=== PATIENT | female | born 1960 | race Caucasian/White ===

== ENCOUNTER → 2017-01-04 | Outpatient (CLI) | payer BC ==
[~2017-01-04] MED LIST: GLYC1TAB19 PO; ONDA4TAB4 PO; PANCCAP2 PO; PANT40TA PO
--- NOTE | 2017-01-04 14:06 | DIAGNOSTIC IMAGING REPORT ---
MRI CERVICAL WITHOUT CONTRAST CLINICAL HISTORY: M54.12 CERVICAL RADCULOPATHY NECK PAIN WITH RIGHT ARM RADICULOPATHY. TECHNIQUE: Sagittal and axial T1, T2 and STIR images were obtained. COMPARISON STUDY: No previous studies for comparison. There are no suspicious areas of marrow replacement. No intrinsic cervical cord lesions are visualized. C2-3: There is no evidence of disc bulge or focal herniation. There is no spinal or foraminal stenosis. C3-4: There is no evidence of disc bulge or focal herniation. There is no spinal or foraminal stenosis. C4-5: There are no disc bulges or focal herniations. There is no spinal or foraminal stenosis. C5-6 :There is a left paracentral disc protrusion with effacement of the anterior subarachnoid space. C6-7: There is a right paracentral disc protrusion with effacement of the anterior subarachnoid space. There is right-sided foraminal narrowing. C7-T1: There is no evidence of disc bulge or focal herniation. There is no evidence of spinal or foraminal stenosis. There are multiple tiny perineural cysts. IMPRESSION: 1. Small left paracentral disc protrusion at the C5-6 level with secondary effacement of the anterior subarachnoid space 2. Small right paracentral disc protrusion at the C6-7 level with secondary effacement of the anterior subarachnoid space. In addition there is right-sided foraminal narrowing. Electronically signed by: Alcides Siddiqi M.D. 01/04/2017 2:05 PM Dictated Date/Time: 01/04/2017 2:00 PM
== END | disposition home or self-care (01) ==
LOC: C.MRI 08:02
PROVIDERS: ATTEND Orthopaedic Surgery Orthopaedic Surgery of the Spine
DX: M54.12 Radiculopathy, cervical region (principal)

== ENCOUNTER → 2017-03-15 | Outpatient (CLI) | payer BC ==
--- NOTE | 2017-03-15 16:02 | MAMMOGRAPHY REPORT ---
UNILATERAL LEFT DIGITAL SCREENING MAMMOGRAM TOMOSYNTHESIS WITH CAD: 03/15/2017 CLINICAL HISTORY: Asymptomatic. Personal history of breast cancer. TECHNIQUE: Breast tomosynthesis in addition to standard 2D mammography was performed. Current study was also evaluated with a Computer Aided Detection (CAD) system. Left CC and MLO 2-D and tomosynthes is images were obtained. COMPARISON: Comparison is made to exams dated: 02/18/2015 mammogram, 02/17/2014 mammogram, 02/11/2013 m ammogram, 02/09/2012 mammogram, 02/01/2011 mammogram, and 07/14/2010 ultrasound - [facility]. BREAST COMPOSITION: The tissue of the left breast is heterogeneously dense, which may obscure small masses. FINDINGS: There are no suspicious masses, calcifications, or areas of architectural distortion noted in the left breast. There has been no significant interval change compared to prior exams. A few s cattered benign-appearing calcifications are again noted. Status post right mastectomy. IMPRESSION: ACR BI-RADS CATEGORY 2: BENIGN There is no mammographic evidence of malignancy. A 1 year screening mammogram is recommended. The pa tient will receive written notification of the results. Approximately 10% of breast cancers are not detected with mammography. A negative mammographic report should not delay biopsy if a clinically suggestive mass is present. Bina Zhang M.D. ah/:03/15/2017 07:53:30 Microfilm Machine Operator: Angeline SÁNCHEZ)([place]), [facility] letter sent: Normal 1/2 BI-RADS Code: ACR BI-RADS Category 2: Benign
== END | disposition home or self-care (01) ==
LOC: C.MAMM 07:04
PROVIDERS: ATTEND Student in an Organized Health Care Education/Training Program
DX: Z12.31 Encounter for screening mammogram for malignant neoplasm of breast (principal); Z90.11 Acquired absence of right breast and nipple; Z85.3 Personal history of malignant neoplasm of breast